=== PATIENT | female | born 1945 | race African-American/Black ===

== ENCOUNTER 2016-11-15 13:13 | Inpatient (IN) | payer MEDICARE ==
[~2016-11-15] VITALS: Ht 165.1 cm; Wt 113.7 kg
[2016-11-15] MEDS ORDERED: LORazepam 2 MG/ML, 1ML IVPush ONE (14:00)
[2016-11-15] MEDS ORDERED: PLEASE ENTER ALLERGIES MC SCH ×2 (14:00)
[2016-11-15] MEDS ORDERED: ONDANSETRON 2MG/ML, 2ML IVPush ONE (14:00)
[2016-11-15] MEDS ORDERED: SODIUM CHLORIDE FLUSH 10ML SYR IVF ONE (15:00)
[2016-11-15] MEDS ORDERED: NITROGLYCERIN SINGLE TAB 0.4 MG SL ONE (15:47)
[2016-11-15] MEDS ORDERED: LORazepam 2 MG/ML, 1ML ONE (15:49)
[2016-11-15] MEDS ORDERED: ONDANSETRON 2MG/ML, 2ML ONE (15:50)
[2016-11-15] MEDS: NITROGLYCERIN SINGLE TAB 0.4 MG SL PRN ×3 (16:01→16:11)
[2016-11-15 16:17] LABS: ASPARTATE AMINO TRANSFERASE 15 U/L (15-37); BLOOD UREA NITROGEN 18 mg/dL (7-18)
[2016-11-15 16:21] LABS: IS PT STATUS REG ER OR PRE ER? YES
[2016-11-15] MEDS ORDERED: SODIUM CHLORIDE FLUSH 10ML SYR IVF PRN (17:00)
[2016-11-15] MEDS ORDERED: FURO-92 PO (17:23)
[2016-11-15] MEDS ORDERED: ASPI-515 PO (17:23)
[2016-11-15] MEDS ORDERED: ASPI325T80 PO (17:23)
[2016-11-15] MEDS ORDERED: POTA10TA PO (17:23)
[2016-11-15] MEDS ORDERED: METO1TAB18 PO (17:23)
[2016-11-15] MEDS ORDERED: IPRA4AER IH (17:25)
[2016-11-15] MEDS ORDERED: FLUT12AE2 INH (17:25)
[2016-11-15] MEDS ORDERED: CLON2TAB PO (17:26)
[2016-11-15] MEDS ORDERED: LORA2TAB PO (17:27)
[2016-11-15] MEDS ORDERED: GUAIFENESIN/DM 200-20MG, 10ML UDC PO PRN (17:30)
[2016-11-15] MEDS ORDERED: POLYETHYLENE GLYCOL 17 GM PACKET PO PRN (17:30)
[2016-11-15] MEDS ORDERED: ONDANSETRON ODT 4 MG PO PRN (17:30)
[2016-11-15] MEDS ORDERED: ONDANSETRON 2MG/ML, 2ML IVPush PRN (17:30)
[2016-11-15] MEDS ORDERED: MORPHINE SULFATE 4 MG/ML, 1ML IVPush PRN (17:30)
[2016-11-15] MEDS ORDERED: LABETALOL 5MG/ML, 20ML IVPush PRN (17:30)
[2016-11-15] MEDS ORDERED: TEMPLATE NON-FORMULARY MED. (Ipratropium/Albuterol Sulfate (Combivent Respimat Inhal Spray IH ONE (18:00)
[2016-11-15 18:08] VITALS: BP 165/64
[2016-11-15] MEDS ORDERED: ENOXAPARIN 40 MG/0.4 ML ONE (18:11)
[2016-11-15] MEDS: HYDROcodone/APAP 5/325 TABLET PO PRN (18:13)
[2016-11-15] MEDS: ENOXAPARIN 40 MG/0.4 ML SQ SCH (18:13)
[2016-11-15] MEDS ORDERED: ENAL20TA PO (18:31)
[2016-11-15] MEDS ORDERED: ALBUTEROL/IPRATROPIUM 2.5MG/0.5MG, 3 ML NPPB PRN (19:00)
[2016-11-15 20:01] LABS: IS PT STATUS REG ER OR PRE ER? NO
[2016-11-15 20:20] VITALS: BP 133/78
[2016-11-15] MEDS ORDERED: ENALAPRIL 20MG TABLET PO SCH (21:00)
[2016-11-15] MEDS ORDERED: FUROSEMIDE 40 MG/4 ML IV ONE (21:00)
[2016-11-15] MEDS: FLUTICASONE FUROATE 200MCG/INH INH SCH (21:15)
[2016-11-16 01:40] VITALS: BP 127/64
[2016-11-16] MEDS: HYDROcodone/APAP 5/325 TABLET PO PRN ×4 (01:45→20:12)
[2016-11-16] MEDS ORDERED: DIPHENHYDRAMINE 25 MG CAPSULE ONE (01:58)
[2016-11-16] MEDS ORDERED: DIPHENHYDRAMINE 25 MG CAPSULE PO PRN ×2 (02:00→15:00)
[2016-11-16 05:08] LABS: BLOOD UREA NITROGEN 23 mg/dL (7-18)
[2016-11-16 05:11] LABS: ASPARTATE AMINO TRANSFERASE 13 U/L (15-37)
[2016-11-16 05:12] LABS: IS PT STATUS REG ER OR PRE ER? NO
[2016-11-16 07:15] VITALS: BP 151/77
[2016-11-16] MEDS: SENNA/DOCUSATE TABLET PO SCH (08:11)
[2016-11-16] MEDS: FLUTICASONE FUROATE 200MCG/INH INH SCH (08:11)
[2016-11-16] MEDS: METOPROLOL TARTRATE 50 MG TABLET PO SCH (08:11)
[2016-11-16] MEDS: ASPIRIN 81 MG TABLET EC PO SCH (08:12)
[2016-11-16] MEDS: HYDROCHLOROTHIAZIDE 25 MG TABLET PO SCH (08:12)
[2016-11-16] MEDS ORDERED: methylPREDNISolone SOD SUCC 125 MG/2 ML IVPush SCH (08:30)
[2016-11-16] MEDS ORDERED: SODIUM CHLORIDE 0.9%, 500ML IVBOLUS ONE (08:30)
[2016-11-16] MEDS ORDERED: ENALAPRIL 20MG TABLET PO SCH (09:00)
[2016-11-16] MEDS ORDERED: LORazepam 2 MG/ML, 1ML IVPush ONE (09:30)
[2016-11-16] MEDS ORDERED: SODIUM CHLORIDE 0.9% 1,000ML IVBOLUS ONE (09:30)
[2016-11-16] MEDS ORDERED: LORazepam 2 MG/ML, 1ML ONE (09:33)
[2016-11-16 14:20] VITALS: BP 137/75
[2016-11-16 17:44] VITALS: BP 152/79
[2016-11-16] MEDS: ENOXAPARIN 40 MG/0.4 ML SQ SCH (17:45)
[2016-11-16] MEDS ORDERED: LORazepam 1MG TABLET ONE (19:55)
[2016-11-16 21:33] VITALS: BP 135/81
[2016-11-17 01:05] VITALS: BP 103/58
[2016-11-17] MEDS: HYDROcodone/APAP 5/325 TABLET PO PRN (04:40)
[2016-11-17 06:24] LABS: BLOOD UREA NITROGEN 25 mg/dL (7-18)
[2016-11-17 08:23] VITALS: BP 143/84
[2016-11-17] MEDS ORDERED: POTASSIUM CHLORIDE 20 MEQ TAB.ER.PRT PO SCH (10:00)
[2016-11-17] MEDS ORDERED: TRIAMCINOLONE CRM 0.1%, 15GM TP SCH (10:00)
[2016-11-17] MEDS ORDERED: FUROSEMIDE 40 MG TABLET PO SCH (10:00)
[2016-11-17] MEDS: HYDROCHLOROTHIAZIDE 25 MG TABLET PO SCH (10:20)
[2016-11-17] MEDS: METOPROLOL TARTRATE 50 MG TABLET PO SCH (10:20)
[2016-11-17] MEDS: FLUTICASONE FUROATE 200MCG/INH INH SCH (10:21)
[2016-11-17] MEDS: ASPIRIN 81 MG TABLET EC PO SCH (10:21)
[2016-11-17] MEDS ORDERED: TRIA15CR3 TP (10:45)
[2016-11-17] MEDS ORDERED: FURO-93 PO (10:48)
[2016-11-17] MEDS ORDERED: POTA20PA8 PO (10:50)
[2016-11-17] MEDS ORDERED: ENAL20TA PO (11:03)
[2016-11-17] MEDS: SENNA/DOCUSATE TABLET PO SCH (11:05)
== END 2016-11-17 13:20 | disposition home or self-care (01) | DRG 292 ==
LOC: ED 14:40 → EDIP 17:11 → 5SO 17:58 → 4EST 11-16 18:43 → DCLOUNGE 11-17 13:00
PROVIDERS: ADMIT Hospitalist; ATTEND Hospitalist
DX: I11.0 Hypertensive heart disease with heart failure (principal); Z68.41 Body mass index [BMI] 40.0-44.9, adult; I20.0 Unstable angina; F41.0 Panic disorder [episodic paroxysmal anxiety]; I15.9 Secondary hypertension, unspecified; D72.829 Elevated white blood cell count, unspecified; E66.9 Obesity, unspecified; F41.1 Generalized anxiety disorder; I34.0 Nonrheumatic mitral (valve) insufficiency; R07.9 Chest pain, unspecified; R73.9 Hyperglycemia, unspecified; J45.909 Unspecified asthma, uncomplicated; R12 Heartburn; M19.90 Unspecified osteoarthritis, unspecified site; M79.7 Fibromyalgia; Z85.41 Personal history of malignant neoplasm of cervix uteri; Z86.73 Personal history of transient ischemic attack (TIA), and cerebral infarction without residual deficits; Z90.710 Acquired absence of both cervix and uterus; Z90.49 Acquired absence of other specified parts of digestive tract; Z90.722 Acquired absence of ovaries, bilateral; Z88.0 Allergy status to penicillin; Z91.041 Radiographic dye allergy status; I50.9 Heart failure, unspecified
CPT/HCPCS: 36415; 71010; 80048; 80053; 82040; 83690; 83735; 83880; 84439; 84484; 85025; 85379; 85610; 85730; 93005; 93306; 96374; 96375; J1650; J1940; J2405; J2060; J7030; Q0163